=== PATIENT | female | born 2000 | race Caucasian/White ===

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

== ENCOUNTER 2019-03-27 19:22 | Emergency (ER) | payer OTHER ==
[~2019-03-27] VITALS: Ht 157.5 cm; Wt 45.2 kg
[~2019-03-27 19:22] MED LIST changes: +ZOFR8TAB24 PO
[2019-03-27] MEDS ORDERED: ALBUTEROL SULFATE 2.5 MG/0.5 ML INH NEB SOLN NEB ONE (20:30)
[2019-03-27] MEDS ORDERED: ALBUTEROL 90 MCG/ACT 8GM HFA INHALER INH ONE (22:45)
[2019-03-27] MEDS ORDERED: predniSONE 20 MG TAB PO ONE (22:45)
[2019-03-27] MEDS ORDERED: PRED20TA PO (22:47)
[2019-03-27] MEDS ORDERED: PROAAER10 INH (22:47)
[2019-03-27] MEDS ORDERED: PSEU120T19 PO (22:49)
[2019-03-27 23:06] VITALS: BP 128/67
--- NOTE | 2019-03-28 01:48 | REP ---
Clinical: Coughing and wheezing with shortness of breath . Comparison: 12/17/2017 . Technique: PA and lateral. Findings: The mediastinum and cardiac silhouette are normal. The lung cadena are clear and without acute consolidation, effusion, or pneumothorax. The skeletal structures are intact and normal. Impression: 1. No acute cardiopulmonary process. Electronically Signed by Tung Carrillo MD 03/28/2019 01:40 A
== END 2019-03-27 23:48 | disposition home or self-care (01) ==
LOC: M ED 19:22
DX: J06.9 Acute upper respiratory infection, unspecified (principal); J45.909 Unspecified asthma, uncomplicated; Z88.0 Allergy status to penicillin

== ENCOUNTER 2019-05-22 00:33 | Emergency (ER) | payer MEDICAID, OTHER, SELFPAY ==
[~2019-05-22] VITALS: Ht 157.5 cm; Wt 42.7 kg
[~2019-05-22 00:33] MED LIST changes: +PROAAER10 INH; +PSEU120T19 PO
[2019-05-22] MEDS ORDERED: METOCLOPRAMIDE 10 MG TAB PO ONE (01:15)
[2019-05-22] MEDS ORDERED: ACETAMINOPHEN 500 MG TAB PO ONE (01:15)
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
[2019-05-22] MEDS ORDERED: IBUP-1022 PO (02:03)
[2019-05-22] MEDS ORDERED: REGL10TA6 PO (02:03)
[2019-05-22 02:14] VITALS: BP 108/71
[2019-05-22] MEDS ORDERED: IBUPROFEN 600 MG TAB PO ONE (02:15)
== END 2019-05-22 02:16 | disposition home or self-care (01) ==
LOC: M ED 00:33
DX: R04.0 Epistaxis (principal); S06.0X0A Concussion without loss of consciousness, initial encounter; S00.01XA Abrasion of scalp, initial encounter; S00.03XA Contusion of scalp, initial encounter; Y04.8XXA Assault by other bodily force, initial encounter; Y92.410 Unspecified street and highway as the place of occurrence of the external cause; J45.909 Unspecified asthma, uncomplicated; Z88.0 Allergy status to penicillin

== ENCOUNTER 2019-10-14 10:25 | Emergency (ER) | payer MEDICAID, OTHER ==
[~2019-10-14] VITALS: Ht 157.5 cm; Wt 45.5 kg
[~2019-10-14 10:25] MED LIST changes: +IBUP-1022 PO; +REGL10TA6 PO
[2019-10-14] MEDS ORDERED: METOCLOPRAMIDE INJ 10MG/2ML VIAL (J2765) IV ONE (11:00)
[2019-10-14] MEDS ORDERED: NS 1,000 ML IV ONE (11:00)
[2019-10-14 11:17] LABS: BASO % 0.3 % (0.0-1.0); EOS # 0.1 10^3/uL (0.0-0.5); HEMATOCRIT 35.3 % (36.0-47.0); HEMOGLOBIN 11.2 g/dl (12.0-15.5); LYMPH # 1.3 10^3/uL (1.5-5.0); LYMPH % 13.2 % (24.0-44.0); MEAN CORPUSCULAR HEMOGLOBIN 28.9 pg (27.0-33.0); MEAN CORPUSCULAR HGB CONC 31.7 g/dl (32.0-36.5); MEAN CORPUSCULAR VOLUME 91.2 fl (80.0-96.0); MONO # 0.6 10^3/uL (0.0-0.8); MONO % 6.4 % (0.0-5.0); NEUTROPHILS # 7.7 10^3/uL (1.5-8.5); NEUTROPHILS % 78.7 % (36.0-66.0); PLATELET COUNT, AUTOMATED 266 10^3/uL (150-450); RED BLOOD COUNT 3.87 10^6/uL (4.00-5.40); WHITE BLOOD COUNT 9.8 10^3/uL (4.0-10.0)
[2019-10-14 11:46] LABS: ALBUMIN 3.7 GM/DL (3.2-5.2); BILIRUBIN,DIRECT 0.2 MG/DL (0.0-0.2); BILIRUBIN,TOTAL 0.7 MG/DL (0.2-1.0); TOTAL PROTEIN 7.1 GM/DL (6.4-8.2)
[2019-10-14 13:21] VITALS: BP 113/59
--- NOTE | 2019-10-14 14:29 | REP ---
REASON: Vomiting. PRIORS: None. Transvesical imaging was obtained. Within the uterus there is an anechoic structure with increased echoes surrounding it consistent with a decidual reaction. Within the gestational sac there is echogenic material consistent with a pole the mean crown-rump length measurement of which is consistent with a 7 week 2 day gestational age. Based on that the estimated date of delivery is 05/30/2020. Doppler interrogation of the heart shows a heart rate of 165 beats per minute. A small area of decreased echoes was seen adjacent to the developing chorion. This has a maximal dimension of approximately 1.6 x 0.7 x 0.5 cm. Evaluation of the maternal adnexal spaces showed a 1.7 x 1.2 x 1.0 cm sized cyst arising from the right ovary likely a small corpus luteal cyst. IMPRESSION: Early OB ultrasound as described above. Small area of decreased echoes adjacent to the developing chorion secondary either to chorionic non-fusion during this early stage of or a small subchorionic hemorrhage. This needs to be correlated clinically. Consider followup if clinically relevant. Electronically Signed by Arthur Pantoja DO 10/14/2019 02:55 P
== END 2019-10-14 13:31 | disposition home or self-care (01) ==
LOC: M ED 10:25
DX: O21.9 Vomiting of pregnancy, unspecified (principal); R19.7 Diarrhea, unspecified; Z3A.08 8 weeks gestation of pregnancy; Z88.0 Allergy status to penicillin; O99.511 Diseases of the respiratory system complicating pregnancy, first trimester; J30.89 Other allergic rhinitis
CPT/HCPCS: 76801; 80047; 80076; 81001; 83690; 84702; 85025; 93976; 96361; 96374; 99284; J2765

== ENCOUNTER → 2019-11-02 | Outpatient (CLI) | payer MEDICAID | LOC: M LABSMTC 12:29 | PROVIDERS: ATTEND Family Medicine | DX: Z11.59 Encounter for screening for other viral diseases (principal); Z20.828 Contact with and (suspected) exposure to other viral communicable diseases ==

== ENCOUNTER → 2019-11-22 | Outpatient (CLI) | payer MEDICAID ==
[~2019-11-22] MED LIST changes: +OXYC1TAB23 PO
== END ==
LOC: M LABSMTC 11:04
PROVIDERS: ATTEND Anesthesiology
DX: Z01.818 Encounter for other preprocedural examination (principal); Z11.59 Encounter for screening for other viral diseases

== ENCOUNTER 2019-11-24 09:07 | Day surgery (SDC) | payer MEDICAID, OTHER ==
[~2019-11-24] VITALS: Ht 157.5 cm; Wt 46.7 kg
[~2019-11-24 09:07] MED LIST changes: +DOXYCYCLINE HYCLATE 100 MG in D5W MINI-BAG PLUS 100 ML IV SCH; +LR 1,000 ML IV SCH; -OXYC1TAB23 PO
[2019-11-24] MEDS ORDERED: DOXYCYCLINE HYCLATE 100 MG in D5W MINI-BAG PLUS 100 ML IV ONE (10:30)
[2019-11-24 11:14] LABS: HEMOGLOBIN 11.1 g/dl (12.0-15.5); MEAN CORPUSCULAR HEMOGLOBIN 30.7 pg (27.0-33.0); MEAN CORPUSCULAR HGB CONC 32.6 g/dl (32.0-36.5); MEAN CORPUSCULAR VOLUME 94.2 fl (80.0-96.0); PLATELET COUNT, AUTOMATED 272 10^3/uL (150-450); RED BLOOD COUNT 3.61 10^6/uL (4.00-5.40); WHITE BLOOD COUNT 6.5 10^3/uL (4.0-10.0)
[2019-11-24] MEDS ORDERED: fentaNYL 250 MCG/5 ML INJECTION (J3010) As Ordered ONE (11:25)
[2019-11-24] MEDS ORDERED: MIDAZOLAM INJ 2MG/2ML VIAL (J2250 PER 1MG) As Ordered ONE (11:25)
[2019-11-24] MEDS ORDERED: ACETAMINOPHEN 1000MG 100ML IV BTL (OFIRMEV) (J0131 PER 10MG) As Ordered ONE (11:26)
[2019-11-24] MEDS ORDERED: dexameTHASONE 4 MG/ML 1ML VIAL (J1100 PER 1MG) As Ordered ONE (11:26)
[2019-11-24] MEDS ORDERED: propofoL 200 MG/20 ML VIAL As Ordered ONE (11:26)
[2019-11-24] MEDS ORDERED: LIDOCAINE 2% 100MG/5ML SDV (FOR ANES.) As Ordered ONE (11:26)
[2019-11-24] MEDS ORDERED: ONDANSETRON 4MG/2ML VIAL As Ordered ONE (11:26)
[2019-11-24] MEDS ORDERED: KETOROLAC 60MG 2ML VIAL As Ordered ONE (11:26)
[2019-11-24] MEDS ORDERED: LACRILUBE (AKWA TEARS) OPHTH OINT 3.5 GM As Ordered ONE (11:56)
[2019-11-24] MEDS ORDERED: METHYLERGONOVINE MALEATE 0.2 MG/ML VIAL (J2210) As Ordered ONE (12:12)
[2019-11-24] MEDS ORDERED: PHENYLephrine HCL 500 MCG/5 ML (100MCG/ML) SYRINGE (J2370) As Ordered ONE (12:23)
[2019-11-24] MEDS ORDERED: ePHEDrine SULFATE 25 MG/5 ML(5MG/ML) SYRINGE As Ordered ONE (12:23)
[2019-11-24] MEDS ORDERED: miSOPROStol 200 MCG TAB (S0191) As Ordered ONE (12:48)
[2019-11-24] MEDS ORDERED: ONDANSETRON 4MG/2ML VIAL IV PRN (13:30)
[2019-11-24] MEDS ORDERED: MORPHINE 4 MG/ML 1ML VIAL/SYRINGE (J2270) IV PRN (13:30)
[2019-11-24] MEDS ORDERED: PROMETHAZINE INJ 25 MG/ML VIAL (J2550) IV PRN (13:30)
[2019-11-24] MEDS ORDERED: DOXYCYCLINE HYCLATE 100MG TABLET PO ONE (13:30)
[2019-11-24] MEDS ORDERED: diphenhydrAMINE 50MG/ML VIAL (J1200) IV PRN (13:30)
[2019-11-24] MEDS ORDERED: fentaNYL 100 MCG/2 ML INJECTION (J3010) IV PRN (13:30)
[2019-11-24] MEDS ORDERED: oxyCODONE 5MG TAB PO PRN (13:30)
[2019-11-24] MEDS ORDERED: LR 1,000 ML IV SCH ×2 (13:30)
[2019-11-24] MEDS ORDERED: KETOROLAC 30 MG/ML 1ML VIAL IV PRN (13:30)
[2019-11-24 13:42] LABS: HEMATOCRIT 25.3 % (36.0-47.0); MEAN CORPUSCULAR HEMOGLOBIN 30.2 pg (27.0-33.0); MEAN CORPUSCULAR HGB CONC 31.6 g/dl (32.0-36.5); MEAN CORPUSCULAR VOLUME 95.5 fl (80.0-96.0); PLATELET COUNT, AUTOMATED 222 10^3/uL (150-450); RED BLOOD COUNT 2.65 10^6/uL (4.00-5.40)
[2019-11-24] MEDS ORDERED: METHYLERGONOVINE MALEATE 0.2 MG TAB PO ONE (16:20)
[2019-11-24 17:06] LABS: HEMATOCRIT 29.6 % (36.0-47.0); HEMOGLOBIN 9.7 g/dl (12.0-15.5); MEAN CORPUSCULAR HEMOGLOBIN 29.6 pg (27.0-33.0); MEAN CORPUSCULAR HGB CONC 32.8 g/dl (32.0-36.5); MEAN CORPUSCULAR VOLUME 90.2 fl (80.0-96.0); PLATELET COUNT, AUTOMATED 253 10^3/uL (150-450); RED BLOOD COUNT 3.28 10^6/uL (4.00-5.40); WHITE BLOOD COUNT 13.2 10^3/uL (4.0-10.0)
[2019-11-24] MEDS ORDERED: OXYC1TAB23 PO (17:38)
[2019-11-24 17:45] VITALS: BP 120/72
[2019-11-24] MEDS ORDERED: PERCOCET 5MG/325MG TAB PO ONE (17:45)
[2019-11-24] MEDS ORDERED: IBUP80TA PO (17:53)
== END 2019-11-24 18:50 | disposition home or self-care (01) ==
LOC: M SDC 09:07
PROVIDERS: ATTEND Obstetrics & Gynecology
DX: O02.1 Missed abortion (principal); J45.909 Unspecified asthma, uncomplicated; Z87.891 Personal history of nicotine dependence; Z88.0 Allergy status to penicillin
CPT/HCPCS: 36415; 36430; 59820; 85027; 86850; 86900; 86901; 86920; 88305; J0131; J1100; J1885; J2210; J2250; J2370; J2405; J3010

== ENCOUNTER → 2020-03-03 | Outpatient (REF) | payer OTHER ==
[~2020-03-03] MED LIST changes: -DOXYCYCLINE HYCLATE 100 MG in D5W MINI-BAG PLUS 100 ML IV SCH; -LR 1,000 ML IV SCH; +OXYC1TAB23 PO
[2020-03-03 15:55] LABS: APPEARANCE, URINE HAZY (CLEAR); BACTERIA, URINE AUTO 1+ (NEGATIVE); BILIRUBIN, URINE AUTO NEGATIVE (NEGATIVE); BLOOD, URINE BLOOD 3+ (NEGATIVE); COLOR, URINE YELLOW (YELLOW); GLUCOSE, URINE (UA) AUTO NEGATIVE (NEGATIVE); KETONE, URINE AUTO NEGATIVE (NEGATIVE); LEUKOCYTE ESTERASE, URINE AUTO 3+ (NEGATIVE); NITRITE, URINE AUTO NEGATIVE (NEGATIVE); PROTEIN, URINE AUTO NEGATIVE (NEGATIVE); RBC, URINE AUTO 4 /HPF (0-3); SPECIFIC GRAVITY URINE AUTO 1.003 (1.002-1.035); SQUAMOUS EPITHELIAL CELL UR AU 1 /HPF (0-6); UROBILINOGEN, URINE AUTO 0.2 mg/dL (0.0-2.0); WBC, URINE AUTO TNTC /HPF (0-3)
== END ==
LOC: M LAB REF 15:25
PROVIDERS: ATTEND Physician Assistant Medical
DX: R30.0 Dysuria (principal)

== ENCOUNTER 2020-04-14 13:32 | Emergency (ER) | payer OTHER ==
[~2020-04-14] VITALS: Ht 157.5 cm; Wt 43.4 kg
[2020-04-14 14:10] LABS: BASO % 0.6 % (0.0-1.0); EOS # 0.1 10^3/uL (0.0-0.5); EOS % 1.1 % (0.0-3.0); HEMATOCRIT 34.1 % (36.0-47.0); HEMOGLOBIN 9.9 g/dl (12.0-15.5); LYMPH # 1.3 10^3/uL (1.5-5.0); LYMPH % 20.4 % (24.0-44.0); MEAN CORPUSCULAR HEMOGLOBIN 22.9 pg (27.0-33.0); MEAN CORPUSCULAR VOLUME 78.8 fl (80.0-96.0); MONO # 0.4 10^3/uL (0.0-0.8); MONO % 5.3 % (0.0-5.0); NEUTROPHILS # 4.8 10^3/uL (1.5-8.5); NEUTROPHILS % 72.1 % (36.0-66.0); PLATELET COUNT, AUTOMATED 350 10^3/uL (150-450); RED BLOOD COUNT 4.33 10^6/uL (4.00-5.40); WHITE BLOOD COUNT 6.6 10^3/uL (4.0-10.0)
[2020-04-14 16:37] VITALS: BP 127/65
--- NOTE | 2020-04-14 17:10 | REPVR ---
PROCEDURE INFORMATION: Exam: US First Trimester, Transabdominal Exam date and time: 04/14/2020 3:39 PM Age: 19 years old Clinical indication: Lmp or gestational age (in weeks): 7 weeks 3 days; Other: Vaginal bleeding; ; Additional info: Vaginal bleeding began yesterday TECHNIQUE: Imaging protocol: Real-time transabdominal obstetrical ultrasound of the maternal pelvis and a first trimester , less than 14 weeks 0 days, with image documentation. COMPARISON: No relevant prior studies available. FINDINGS: Gestation: A small gestational sac is present containing a 4 mm pole and a yolk sac. Embryonic/ heart rate: The heart rate is 91 bpm. Placenta: There is a small 7 x 2 x 10 mm hypoechoic area with no vascular flow adjacent to the gestational sac, likely representing a small subchorionic bleed. Amniotic fluid: Amniotic fluid is normal for gestational age. BIOMETRY: Gestational age (AUA): The estimated gestational age of the fetus is 6 weeks and 1 day with an MALOU of 12/07/2020. MATERNAL: Uterus: Unremarkable. Cervix: Unremarkable. Right adnexa: The right ovary measures 2.8 x 1.3 x 1.3 cm. Left adnexa: The left ovary measures 4.0 x 2.6 cm sagittally and contains a 2.6 x 2.8 x 2.5 cm anechoic cyst which has a slightly vascular margin and may be a corpus luteal cyst. Intraperitoneal space: No intraperitoneal free fluid. IMPRESSION: 1. Single living intrauterine fetus with estimated gestational age of 6 weeks and 1 day and an MALOU of 12/07/2020. 2. A small 7 x 2 x 10 mm subchorionic hematoma is seen adjacent to the gestational sac. 3. The left ovary contains a probable corpus luteal cyst. Electronically signed by: Jatinder Maurice On 04/14/2020 17:10:23 PM
== END 2020-04-14 17:28 | disposition home or self-care (01) ==
LOC: M ED 13:32
DX: O20.0 Threatened abortion (principal); Z3A.01 Less than 8 weeks gestation of pregnancy; Z88.0 Allergy status to penicillin

== ENCOUNTER → 2020-04-16 | Outpatient (CLI) | payer OTHER | LOC: M LAB 10:05 | PROVIDERS: ATTEND Emergency Medicine | DX: O26.859 Spotting complicating pregnancy, unspecified trimester (principal); Z3A.00 Weeks of gestation of pregnancy not specified ==

== ENCOUNTER 2020-04-18 01:11 | Emergency (ER) | payer OTHER ==
[~2020-04-18] VITALS: Ht 157.5 cm; Wt 44.0 kg
[2020-04-18 01:12] VITALS: BP 122/63
[2020-04-18] MEDS ORDERED: PRENTAB9 PO (01:23)
== END 2020-04-18 02:51 | disposition left against medical advice (07) ==
LOC: M ED 01:11
DX: Z53.21 Procedure and treatment not carried out due to patient leaving prior to being seen by health care provider (principal)

== ENCOUNTER → 2020-04-18 | Outpatient (REF) | payer OTHER | LOC: M PLALAB 10:50 | PROVIDERS: ATTEND Advanced Practice Midwife | DX: O36.80X0 Pregnancy with inconclusive fetal viability, not applicable or unspecified (principal); Z3A.00 Weeks of gestation of pregnancy not specified ==

== ENCOUNTER → 2020-12-26 | Outpatient (REF) | payer OTHER | LOC: M LAB REF 19:10 | PROVIDERS: ATTEND Physician Assistant | DX: R05 Cough (principal) ==

== ENCOUNTER 2024-08-15 12:17 | Emergency (ER) | payer OTHER ==
[~2024-08-15] VITALS: Ht 157.5 cm; Wt 45.0 kg
[2024-08-15] MEDS: ONDANSETRON 4MG 2ML VIAL IV ONE (17:29)
[2024-08-15 17:47] LABS: BASO % 0.5 % (0.0-1.0); EOS # 0.2 10^3/uL (0.0-0.5); EOS % 2.5 % (0.0-3.0); HEMATOCRIT 34.8 % (36.0-47.0); HEMOGLOBIN 10.2 g/dl (12.0-15.5); LYMPH # 1.2 10^3/uL (1.5-5.0); LYMPH % 18.4 % (24.0-44.0); MEAN CORPUSCULAR HEMOGLOBIN 24.1 pg (27.0-33.0); MEAN CORPUSCULAR HGB CONC 29.3 g/dl (32.0-36.5); MEAN CORPUSCULAR VOLUME 82.1 fl (80.0-96.0); MONO # 0.6 10^3/uL (0.0-0.8); MONO % 9.3 % (2.0-8.0); NEUTROPHILS # 4.5 10^3/uL (1.5-8.5); PLATELET COUNT, AUTOMATED 442 10^3/uL (150-450); RED BLOOD COUNT 4.24 10^6/uL (4.00-5.40); WHITE BLOOD COUNT 6.5 10^3/uL (4.0-10.0)
[2024-08-15 18:28] LABS: ALBUMIN 4.3 G/DL (3.2-5.2); ALKALINE PHOSPHATASE 71 U/L (35-104); ALT/SGPT 21 U/L (7.0-40); AST/SGOT 30 U/L (<34); BILIRUBIN,DIRECT 0.1 MG/DL (<0.4); BILIRUBIN,TOTAL 0.3 MG/DL (0.3-1.2); BLOOD UREA NITROGEN 14 MG/DL (9-23); CALCIUM LEVEL 10.2 MG/DL (8.5-10.1); CARBON DIOXIDE LEVEL 25 MMOL/L (20-31); CHLORIDE LEVEL 104 MMOL/L (98-107); CREATININE FOR GFR 0.61 MG/DL (0.55-1.30); GLOMERULAR FILTRATION RATE > 60.0 (>60); GLUCOSE, FASTING 96 MG/DL (60-100); SODIUM LEVEL 138 MMOL/L (136-145)
[2024-08-15] MEDS ORDERED: ONDA-282 PO (18:53)
[2024-08-15 19:00] VITALS: BP 124/73; TEMP 99.2; O2SAT 97
== END 2024-08-15 19:06 | disposition home or self-care (01) ==
LOC: M ED 12:17
DX: R11.10 Vomiting, unspecified (principal); R19.7 Diarrhea, unspecified; J45.909 Unspecified asthma, uncomplicated; F41.9 Anxiety disorder, unspecified; Z88.0 Allergy status to penicillin; Z91.09 Other allergy status, other than to drugs and biological substances; Z79.810 Long term (current) use of selective estrogen receptor modulators (SERMs); Z79.899 Other long term (current) drug therapy
CPT/HCPCS: 80047; 80048; 80076; 83735; 84702; 85025; 87486; 87581; 87633; 87798; 96374; 99284; J2405

== ENCOUNTER 2025-03-25 16:50 | Emergency (ER) | payer OTHER, SELFPAY ==
[~2025-03-25] VITALS: Ht 160 cm; Wt 47.3 kg
[~2025-03-25 16:50] MED LIST changes: -IBUP-1022 PO; +IBUP600T42 PO; +ONDA-282 PO
[2025-03-25 18:44] VITALS: BP 121/72; TEMP 98.5; O2SAT 99
== END 2025-03-25 18:52 | disposition home or self-care (01) ==
LOC: M ED 16:50
DX: S99.922A Unspecified injury of left foot, initial encounter (principal); W20.8XXA Other cause of strike by thrown, projected or falling object, initial encounter; Y92.009 Unspecified place in unspecified non-institutional (private) residence as the place of occurrence of the external cause; Y93.89 Activity, other specified; Y99.9 Unspecified external cause status; Z91.048 Other nonmedicinal substance allergy status

== ENCOUNTER 2025-04-19 18:02 | Emergency (ER) | payer OTHER ==
[~2025-04-19] VITALS: Ht 160 cm; Wt 46.0 kg
[2025-04-19 18:08] VITALS: BP 114/65; TEMP 98.4; O2SAT 96
[2025-04-19] MEDS ORDERED: MIRT-10 (18:14)
[2025-04-19] MEDS ORDERED: LAMO100T3 (18:14)
== END 2025-04-19 21:45 | disposition left against medical advice (07) ==
LOC: M ED 18:02
DX: Z53.21 Procedure and treatment not carried out due to patient leaving prior to being seen by health care provider (principal)